=== PATIENT | female | born 1985 ===

== ENCOUNTER 2019-06-03 20:48 | Emergency (ER) | payer OTHER ==
[~2019-06-03] VITALS: Ht 162.6 cm; Wt 56.7 kg
[2019-06-03 20:50] VITALS: BP 135/95; Ht 162.6 cm; Wt 56.7 kg
== END 2019-06-03 21:13 | disposition other institution (70) ==
LOC: ED 20:48
DX: Z02.89 Encounter for other administrative examinations (principal)